=== PATIENT | female | born 1960 | race Caucasian/White ===

== ENCOUNTER 2017-01-27 14:36 | Day surgery (SDC) | payer OTHER ==
[~2017-01-27] VITALS: Ht 157.5 cm; Wt 95.3 kg
[~2017-01-27 14:36] MED LIST: ASPIRIN 81MG TA81 MG PO; GABAPENTIN300 MG PO; TOPIRAMATE 25MG25 MG PO
[2017-01-27 14:59] VITALS: BP 127/67
[2017-01-27 15:17] VITALS: BP 127/67
[2017-01-27 15:18] VITALS: BP 189/101
--- NOTE | 2017-01-27 15:23 | Procedure Note ---
See Addendum Procedure detail Date of procedure: 01/27/17 Anesthesiologist: Sonido Rivas Complications: None Pre-procedure diagnosis: Degenerative disease lumbar spine multiple levels. Lumbar radiculopathy symptoms. Post-procedure diagnosis: Same. Indications for procedure: Very pleasant 56-year-old white female the comes our procedure clinic today for her initial lumbar epidural steroid injection L4-5 level. Patient is status post medial branch block L4-5 and L5-S1 bilaterally. She received slight improvement in her low back pain however her bilateral hip and leg radicular symptoms continue. She describes her low back pain as constant, dull, aching. She rates the pain 7/10. Procedure detail: Procedure: Lumbar epidural steroid injection under fluoroscopy Informed consent was obtained and the risks and benefits of the procedure were explained to the patient. The patient was taken to the procedure room and noninvasive monitors placed, including noninvasive blood pressure cuff and pulse oximeter. The back was viewed using C-arm Fluoroscopy and prepped using Betadine as a cleansing solution and the L4-L5 interspace was palpated. Skin and subcutaneous tissues were anesthetized using lidocaine 1.5% and a 25-gauge needle. After this, an 18-gauge Touhy epidural needle was placed into the L4-L5 interspace and advanced using fluoroscopic guidance and loss of resistance to air until the epidural space was encountered. After confirmation of needle placement in the epidural space, with dye, a solution containing lidocaine 1.5%, 4 mL and Depo-Medrol 80 mg were incrementally injected into the lumbar epidural space. The patient tolerated the procedure well with no complications. The patient was observed in the Pain Clinic and then discharged home neurologically intact. Plan and disposition: Patient was reevaluated 10 minutes post procedure. She Jover well. She returns to us in pain clinic further evaluation. at [id number]
[2017-01-27 15:45] VITALS: BP 133/82
== END 2017-01-27 15:46 | disposition home or self-care (01) ==
LOC: PM 14:36
PROC: 3E0R33Z Introduction of Anti-inflammatory into Spinal Canal, Percutaneous Approach (ICD-10-PCS; principal; 2017-01-27)
PROC: B01B1ZZ Fluoroscopy of Spinal Cord using Low Osmolar Contrast (ICD-10-PCS; 2017-01-27)
PROC: 3E0R3BZ Introduction of Anesthetic Agent into Spinal Canal, Percutaneous Approach (ICD-10-PCS; 2017-01-27)
DX: M51.16 Intervertebral disc disorders with radiculopathy, lumbar region (principal)
CPT/HCPCS: J1040; Q9966